=== PATIENT | male | born 1955 | race Two or more races ===

== ENCOUNTER 2020-06-20 14:32 | Inpatient (IN) | payer MEDICARE ==
[~2020-06-20] VITALS: Ht 180.3 cm; Wt 93.0 kg
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
[2020-06-20] MEDS ORDERED: LORAZEPAM 0.5 MG TABLET PO PRN ×2 (15:00→21:00)
[2020-06-20] MEDS ORDERED: MAGNESIUM HYDROXIDE 30 ML UDC PO PRN (15:00)
[2020-06-20] MEDS ORDERED: MAG HYDROX/AL HYDROX/SIMETH 30 ML UDC PO PRN (15:00)
[2020-06-20] MEDS ORDERED: ACETAMINOPHEN 325 MG TABLET PO PRN (15:00)
[2020-06-20] MEDS ORDERED: DIVA500T4 PO ×2 (15:09)
[2020-06-20] MEDS ORDERED: HALO100A2 IM (15:09)
[2020-06-20] MEDS ORDERED: TRAZ-182 PO (15:09)
--- NOTE | 2020-06-20 15:42 | NUR ---
RN-CO: DR MARTINEZ SEEN AND EXAMINED THE PATIENT WITH ORDERS NOTED AND CARRIED OUT.
[2020-06-20 15:50] VITALS: BP 127/72
[2020-06-20] MEDS: LORAZEPAM 0.5 MG TABLET PO PRN (16:27)
--- NOTE | 2020-06-20 16:28 | NUR ---
RN NOTE- PT VERBALLY ESCALATING. OFFERED ATIVAN 1 MG REFUSED STATED HED CALM DOWN. PT CALMED. THIRTY MINUTES LATER PT THREW WATER PITCHER AT VICE PRESIDENT OF FINANCE STAFF. ATIVAN 1 MG GIVEN REDIRECTED AND BOUNDARIES ESTABLISHED
[2020-06-20] MEDS ORDERED: BLOOD SUGAR DIAGNOSTIC 1 EACH STRIP IN ONE (16:30)
[2020-06-20] MEDS: QUETIAPINE FUMARATE 100 MG TABLET PO SCH ×2 (16:58→21:28)
[2020-06-20 19:52] VITALS: BP 111/60
[2020-06-20] MEDS: DIVALPROEX SODIUM 500 MG TABLET.DR PO SCH (21:27)
[2020-06-20] MEDS: TRAZODONE 50 MG TABLET PO SCH (21:28)
[2020-06-21] MEDS: TEMAZEPAM 7.5 MG CAPSULE PO PRN (00:36)
--- NOTE | 2020-06-21 00:42 | NUR ---
Pt c/o insomnia. Least restrictive measures ineffective. Restoril 7.5 mg po prn given as ordered. Will continue to monitor.
--- NOTE | 2020-06-21 02:06 | NUR ---
Post 1 hr Restoril effective. Pt asleep in bed easy to arouse. Will continue to monitor.
[2020-06-21] MEDS: LORAZEPAM 0.5 MG TABLET PO PRN ×2 (02:21→19:45)
--- NOTE | 2020-06-21 02:35 | NUR ---
Pt woke up and c/o anxiety. Least restrictive measures ineffective. Ativan 1 mg po prn given as ordered. Also c/o pain 3/10 to L hip. Tylenol 650 mg po prn given as ordered. Will continue to monitor.
--- NOTE | 2020-06-21 03:35 | NUR ---
Post 1 hr Ativan and tylenol effective. Pt is asleep in bed easy to arouse. Will continue to monitor.
[2020-06-21 06:41] LABS: ALBUMIN 3.1 g/dL (3.4-5.0); BILIRUBIN,TOTAL 0.4 mg/dL (0.2-1.0); CALCIUM, SERUM 8.7 mg/dL (8.5-10.1); CREATININE 0.9 mg/dL (0.6-1.3); POTASSIUM 4.4 mmol/L (3.5-5.1); TOTAL PROTEIN, SERUM 6.8 g/dL (6.4-8.2)
[2020-06-21] MEDS ORDERED: MEMA5TAB42 PO (07:54)
[2020-06-21] MEDS ORDERED: LISI-607 PO (07:54)
[2020-06-21] MEDS ORDERED: CYCL10TA9 PO (07:54)
[2020-06-21 08:00] VITALS: BP 111/71
[2020-06-21] MEDS: DIVALPROEX SODIUM 500 MG TABLET.DR PO SCH ×2 (08:24→21:10)
[2020-06-21] MEDS: QUETIAPINE FUMARATE 100 MG TABLET PO SCH ×3 (08:24→21:41)
--- NOTE | 2020-06-21 09:00 | NUR ---
RN NOTE- PT CALMER THIS MORNING HYPERVERBAL AT TIMES THOUGH LESS THAN ADMISSION TIME PO INTAKE GOOD MED COMPLIANT NO BEHAVIORAL ISSUES DENIES SI HI VH
--- NOTE | 2020-06-21 15:10 | NUR ---
Group Note: SW invited patient to participate in group therapy to discuss the topic of Problem Solving. Patient presents with euthymic mood and congruent affect. Patient shared that he lives with his with whom he no longer gets along" with. Patient was upset about his home situation and expressed that he wants to get a "divorce from his ". Patient also shared about having triplet sisters. Patient shared about his passion for cooking, but hates to clean up after. cafe worker provided active listening and acknowledged patient's feelings and concerns.
[2020-06-21 16:00] VITALS: BP 110/57
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
--- NOTE | 2020-06-21 19:46 | NUR ---
GPS RN NOTE: ANXIETY/AGITATION PATIENT IS AGITATED, YELLING, SCREAMING, ANXIOUS, PARANOID, NAKED , DOES NOT WANT WEAR GOWN ,RESTLESS, HYPERVERBAL AT THIS TIME, CURSING STAFF. NOT FOLLOWING ANY REDIRECTIONS ,PRN ATIVAN 1 MG , PO GIVEN, WILL CONTINUE TO MONITOR .
[2020-06-21 19:54] VITALS: BP 131/79
[2020-06-21] MEDS: TRAZODONE 50 MG TABLET PO SCH (21:41)
[2020-06-22] MEDS: TEMAZEPAM 7.5 MG CAPSULE PO PRN (02:08)
--- NOTE | 2020-06-22 02:18 | NUR ---
GPS RN NOTE: INSOMNIA PT. C/O UNABLE TO SLEEP. ADMINISTERED RESTORIL 7.5 MG PO PRN ORDERED. WILL CONTINUE TO MONITOR FOR SAFETY AND BEHAVIOR.
[2020-06-22 08:00] VITALS: BP 134/74
[2020-06-22] MEDS: QUETIAPINE FUMARATE 100 MG TABLET PO SCH ×2 (08:07→16:17)
[2020-06-22] MEDS: DIVALPROEX SODIUM 500 MG TABLET.DR PO SCH ×2 (08:07→20:35)
[2020-06-22] MEDS: LORAZEPAM 0.5 MG TABLET PO PRN ×2 (08:07→21:07)
--- NOTE | 2020-06-22 08:07 | NUR ---
RN NOTE- PT WALKING INTO SUN NAKED SHOWING GENITALS AGITATED . ATIVAN 1 MG GIVEN
[2020-06-22] MEDS: LISINOPRIL (5MG) 5 MG TABLET PO SCH (08:09)
--- NOTE | 2020-06-22 09:00 | NUR ---
RN NOTE- PT LESS INTRUSIVE, DECREASED OFFENSIVE BEHAVIORS, CONFUSED CONTINUES USING CALL BUTTON THEN ASKS TO 'LEARN HOW TO PLAY [employer]' WHEN ASKED WHAT HIS NEEDS ARE. DIRECTABLE MEWD COMPLIANT PO INTAKE FAIR SLEEPING POORLY
--- NOTE | 2020-06-22 11:15 | NUR ---
Point of Contact: OSVALDO called the contact on the [facility] ([phone]), but the phone went directly to voicemail and the mailbox was not set up.
--- NOTE | 2020-06-22 11:17 | NUR ---
Assisted Living Contact: OSVALDO called Eren ([phone]), Photoengraving Etcher Apprentice, but the phone kept ringing and then the phone line ended. There was no opportunity to leave a voicemail. OSVALDO will make another attempt at a later time.
--- NOTE | 2020-06-22 12:00 | NUR ---
RN NOTE- PT YELLING, INAPPROPRIATE MAKING RACIST REMARKS THROWING FOOD IN DAY ROOM WHEN REDIRECTED WALKING INTO SUN SHOWING GENITALS AT PEOPLE. DR MARTINEZ
--- NOTE | 2020-06-22 12:29 | NUR ---
Initial Discharge Plan: Pt currently resides at [facility] located at [address] [place] [id number]; ([phone]). Per pt, he would like to return to his home. SW will work with the pt and the MD regarding appropriate discharge planning. SW will form a safe and proper discharge.
--- NOTE | 2020-06-22 12:45 | NUR ---
RN NOTE- PT CAME INTO SUN SHOWING GENITALS AND BUTTOCKS ALSO TOUGH TO REDIRECT YELLING RACIAL SLURS. DR MARTINEZ INCREASED SEROQUEL. AUDIT MANAGER SPOKE TO
--- NOTE | 2020-06-22 15:46 | NUR ---
Group Note: SW encouraged pt to attend group therapy on 06/22/20 on the topic of discharge planning. Pt appeared to be too confused and disorganized to participate.
[2020-06-22 16:00] VITALS: BP 129/58
[2020-06-22 19:57] VITALS: BP 108/65
--- NOTE | 2020-06-22 21:07 | NUR ---
GPS RN NOTES: ANXIOUS PT THROWING BOOK ACROSS THE ROOM PT ANXIOUS. PT EASILY AGITATED AND ANGRY. ADMINISTERED ATIVAN 1MG PO PRN ORDERED. PT AGREED AND TOLERATED MEDICATION WELL. CONTINUE TO MONITOR.
[2020-06-22 21:37] VITALS: BP 115/67
[2020-06-22] MEDS ORDERED: QUETIAPINE FUMARATE 100 MG TABLET PO SCH (22:00)
[2020-06-22] MEDS: TRAZODONE 50 MG TABLET PO SCH (22:05)
[2020-06-23] MEDS: TEMAZEPAM 7.5 MG CAPSULE PO PRN ×2 (01:47→23:52)
--- NOTE | 2020-06-23 01:52 | NUR ---
GPS RN NOTES: INSOMNIA UPON DOING ROUNDS PT IN BED AWAKE READING A MAGAZINE. ASKED PT TO EXPRESS THOUGHTS AND FEELINGS. PT STATED HE CANT SLEEP. AND REQUESTED SLEEPING MEDICATION. CHECKED VITALS WNL. NO SOB. NO RESP DISTRESS. BREATHING EVEN AND UNLABORED. OFFERED RESTORIL PO PRN ORDERED. PT AGREED AND TOLERATED MEDICATION WELL. CONTINUE TO MONITOR.
[2020-06-23 08:00] VITALS: BP 130/71
[2020-06-23] MEDS: LORAZEPAM 0.5 MG TABLET PO PRN (08:59)
[2020-06-23] MEDS: QUETIAPINE FUMARATE 100 MG TABLET PO SCH ×3 (09:00→21:29)
[2020-06-23] MEDS: LISINOPRIL (5MG) 5 MG TABLET PO SCH (09:00)
[2020-06-23] MEDS: DIVALPROEX SODIUM 500 MG TABLET.DR PO SCH ×2 (09:00→21:29)
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
--- NOTE | 2020-06-23 10:51 | NUR ---
Assisted Living Contact: SW called Eren ([phone]), Air Brush Decorator, but the phone kept ringing and then the phone line ended. There was no opportunity to leave a voicemail.
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
--- NOTE | 2020-06-23 11:18 | NUR ---
Group Note: SW encouraged pt to participate in group on the topic of dealing with anxiety. Patient called this policy writer typist "Yara" and stated that this policy writer typist looks like his sister. Patient rambled about unrelated things, however he denies feeling anxiety. Pt presents confused and disorganized. SW provided active listening and supportive counseling.
[2020-06-23] MEDS ORDERED: LIDOCAINE 1%-EPI 1:100,000 50 ML VIAL IJ ONE (11:30)
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
--- NOTE | 2020-06-23 12:42 | NUR ---
RN NOTE :JUSTUS ALVAREZ INSERTED 6 MEAGHAN LEFT SIDE OF HEAD ,NO BLEEDING AT THIS TIME PLACE DRESSING ,CT HEAD ORDERED BY JUSTUS .WILL CONTINUE TO MONITOR .
[2020-06-23] MEDS ORDERED: LORAZEPAM 0.5 MG TABLET PO PRN (15:30)
[2020-06-23 16:00] VITALS: BP 100/68
--- NOTE | 2020-06-23 16:57 | NUR ---
RN NOTE:Patient alert verbally responsive flat affect ,ambulatory and self care no c/o pain ,isolative and withdrawn ,confused ,require constant redirection ,medicated with ativan prn for anxiety ,patient not agitated but confused and unpredictable notified with new orders ,all orders carried out ,doesn't know where he is .continue to monitor for
--- NOTE | 2020-06-23 17:00 | NUR ---
RN NOTE :CALLED TO INCREASE SEROQUEL AND ATIVAN 1MG TO Q4 HRS PRN ALL ORDERS CARRIED OUT.
[2020-06-23 19:29] VITALS: BP 99/60
[2020-06-23] MEDS: TRAZODONE 50 MG TABLET PO SCH (21:29)
--- NOTE | 2020-06-23 23:52 | NUR ---
GPS RN NOTE: INSOMNIA PT. C/O UNABLE TO SLEEP. ADMINISTERED RESTORIL 7.5 MG PO PRN ORDERED. WILL CONTINUE TO MONITOR FOR SAFETY AND BEHAVIOR
[2020-06-24] MEDS ORDERED: OLANZAPINE 10 MG VIAL IM STA (03:21)
[2020-06-24] MEDS ORDERED: LORAZEPAM INJ 2 MG/ML VIAL IM STA (03:21)
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
[2020-06-24] MEDS ORDERED: LORAZEPAM 1 MG TABLET PO PRN (04:00)
[2020-06-24] MEDS ORDERED: TEMAZEPAM 7.5 MG CAPSULE PO PRN (04:00)
[2020-06-24] MEDS ORDERED: ACETAMINOPHEN 325 MG TABLET PO PRN (04:00)
[2020-06-24] MEDS ORDERED: BLOOD SUGAR DIAGNOSTIC 1 EACH STRIP IN ONE (04:00)
[2020-06-24] MEDS ORDERED: MAG HYDROX/AL HYDROX/SIMETH 30 ML UDC PO PRN (04:00)
[2020-06-24] MEDS ORDERED: MAGNESIUM HYDROXIDE 30 ML UDC PO PRN (04:00)
[2020-06-24 08:00] VITALS: BP 100/63
[2020-06-24] MEDS ORDERED: ENSURE ENLIVE CHOC 237 ML CAN PO SCH (08:00)
[2020-06-24] MEDS: LORAZEPAM 1 MG TABLET PO PRN ×2 (08:42→20:21)
[2020-06-24] MEDS: DIVALPROEX SODIUM 500 MG TABLET.DR PO SCH ×2 (08:42→20:59)
[2020-06-24] MEDS: QUETIAPINE FUMARATE 100 MG TABLET PO SCH (08:42)
--- NOTE | 2020-06-24 08:42 | NUR ---
RN NOTES ADMINISTERED ATIVAN 1 MG PO PRN FOR ANXIETY, PARANOIA, V/S TAKEN BP 100/63, P88. CONTINUED MONITORING.
[2020-06-24] MEDS: LISINOPRIL (5MG) 5 MG TABLET PO SCH (08:43)
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
[2020-06-24] MEDS: BENZTROPINE MESYLATE (1 MG) 1 MG TABLET PO SCH ×2 (10:38→17:08)
[2020-06-24] MEDS: GABAPENTIN 100 MG CAPSULE PO SCH ×3 (10:38→17:08)
[2020-06-24] MEDS: HALOPERIDOL 5 MG TABLET PO SCH ×2 (10:38→17:08)
[2020-06-24 20:09] VITALS: BP 105/59
--- NOTE | 2020-06-24 20:47 | NUR ---
GPS RN NOTES: PT RESTLESS, ANXIOUS, PACING, REQUESTED FOR ATIVAN. ATIVAN 1MG 1 TAP GIVEN PO PRN ORDERED AT 2020. WILL CONTINUE TO MONITOR FOR MOOD AND BEHAVIOR.
[2020-06-24] MEDS: TRAZODONE 50 MG TABLET PO SCH (21:43)
[2020-06-25] MEDS: TEMAZEPAM 7.5 MG CAPSULE PO PRN (00:57)
--- NOTE | 2020-06-25 01:32 | NUR ---
GPS RN NOTES: PATIENT RESTLESS, PACING HALLWAY. AT 0054 PATIENT COMPLAINED OF INSOMNIA. RESTORIL 7.5MG 1 CAP GIVEN PO PRN AT 0057. PT CURRENTLY SLEEPING, RESPIRATION EVEN AND UNLABORED WITH EQUAL RISE AND FALL OF THE CHEST, ON ROOM AIR. WILL CONTINUE TO MONITOR.
[2020-06-25] MEDS: HALOPERIDOL 5 MG TABLET PO SCH ×2 (07:47→16:34)
[2020-06-25] MEDS: LISINOPRIL (5MG) 5 MG TABLET PO SCH (07:48)
[2020-06-25] MEDS: GABAPENTIN 100 MG CAPSULE PO SCH ×3 (07:48→16:34)
[2020-06-25] MEDS: DIVALPROEX SODIUM 500 MG TABLET.DR PO SCH ×2 (07:48→21:21)
[2020-06-25] MEDS: BENZTROPINE MESYLATE (1 MG) 1 MG TABLET PO SCH ×2 (07:48→16:34)
--- NOTE | 2020-06-25 08:28 | NUR ---
SNF Referral: OSVALDO faxed a referral to [facility] with attn to Admissions to the fax number: [phone].
[2020-06-25 08:30] VITALS: BP 133/69
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
[2020-06-25] MEDS ORDERED: OLANZAPINE 10 MG VIAL IM ONE (12:30)
[2020-06-25] MEDS ORDERED: LORAZEPAM INJ 2 MG/ML VIAL IM ONE (12:30)
[2020-06-25 16:00] VITALS: BP 125/73
--- NOTE | 2020-06-25 16:39 | NUR ---
Dr. Lebron called and spoke pt. through face time and ordered to increase Depakote to 500 mg TID.
[2020-06-25 19:40] VITALS: BP 124/46
[2020-06-25] MEDS ORDERED: DIVALPROEX SODIUM 500 MG TABLET.DR PO SCH ×2 (20:00→21:00)
[2020-06-25] MEDS: TRAZODONE 50 MG TABLET PO SCH (21:21)
[2020-06-26 08:00] VITALS: BP 118/65
[2020-06-26] MEDS: GABAPENTIN 100 MG CAPSULE PO SCH ×3 (08:49→17:11)
[2020-06-26] MEDS: HALOPERIDOL 5 MG TABLET PO SCH ×3 (08:49→17:11)
[2020-06-26] MEDS: BENZTROPINE MESYLATE (1 MG) 1 MG TABLET PO SCH ×2 (08:49→17:11)
[2020-06-26] MEDS: LORAZEPAM 1 MG TABLET PO PRN (08:49)
[2020-06-26] MEDS: DIVALPROEX SODIUM 500 MG TABLET.DR PO SCH ×3 (08:49→20:17)
[2020-06-26] MEDS: LISINOPRIL (5MG) 5 MG TABLET PO SCH (08:49)
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
[2020-06-26] MEDS ORDERED: OLANZAPINE 10 MG VIAL IM ONE (10:00)
[2020-06-26] MEDS ORDERED: LORAZEPAM INJ 2 MG/ML VIAL IM ONE (10:00)
[2020-06-26] MEDS ORDERED: TEMAZEPAM 7.5 MG CAPSULE PO PRN (11:00)
[2020-06-26 16:00] VITALS: BP 153/69
[2020-06-26] MEDS ORDERED: DIVALPROEX SODIUM 500 MG TABLET.DR PO SCH (17:00)
[2020-06-26] MEDS: GABAPENTIN 300 MG CAPSULE PO SCH (20:17)
[2020-06-26 20:23] VITALS: BP 90/58
[2020-06-27] MEDS: LORAZEPAM 1 MG TABLET PO PRN (07:20)
--- NOTE | 2020-06-27 07:21 | NUR ---
RN NOTE- PT C/O RESTLESSNESS ATIVAN 1 MG GIVEN
[2020-06-27 08:00] VITALS: BP 119/69
[2020-06-27] MEDS: LISINOPRIL (5MG) 5 MG TABLET PO SCH (08:38)
[2020-06-27] MEDS: GABAPENTIN 100 MG CAPSULE PO SCH ×3 (08:38→16:45)
[2020-06-27] MEDS: DIVALPROEX SODIUM 500 MG TABLET.DR PO SCH ×3 (08:38→21:15)
[2020-06-27] MEDS: HALOPERIDOL 5 MG TABLET PO SCH ×3 (08:38→16:45)
[2020-06-27] MEDS: BENZTROPINE MESYLATE (1 MG) 1 MG TABLET PO SCH ×2 (08:49→16:45)
--- NOTE | 2020-06-27 09:00 | NUR ---
RN NOTE- ANXIOUS AT START OF MORNING, ATIVAN AND RX DECREASED SX PT DIRECTABLE CALM THIS AM PO INTAKE FAIR CIRCUMSTANTIALITY EVIDENT, HYPERGRAPHIA DENIES AKIL IGLESIA [facility] CONTRACTS FOR SAFETY REDIRECTED PRN
[2020-06-27 15:51] VITALS: BP 102/61
[2020-06-27 20:00] VITALS: BP 110/66
[2020-06-27] MEDS: GABAPENTIN 300 MG CAPSULE PO SCH (21:15)
--- NOTE | 2020-06-27 23:00 | NUR ---
GPS RN NOTE: INSOMNIA PT COMPLAINED OF HAVING DIFFICULTY SLEEPING, ASKED IF HE CAN TAKE SOMETHING FOR SLEEP, ADMINISTERED PRN RESTORIL @ 2252, WILL REASSESS AND CONTINUE TO MONITOR Q15MIN FOR SAFETY AND BEHAVIOR.
[2020-06-28] MEDS: LORAZEPAM 1 MG TABLET PO PRN ×3 (03:10→22:06)
--- NOTE | 2020-06-28 03:13 | NUR ---
GPS RN NOTE: ANXIETY PT STATED "IM FEELING ANXIOUS, I NEED SOMETHING, CAN I HAVE ATIVAN" ADMINSTERED 1MG ATIVAN PRN @ 0310, WILL REASSESS AND CONTINUE TO MONITOR Q15 MIN FOR SAFETY AND BEHAVIOR.
[2020-06-28 08:00] VITALS: BP 120/69
[2020-06-28] MEDS: HALOPERIDOL 5 MG TABLET PO SCH ×3 (08:33→16:41)
[2020-06-28] MEDS: BENZTROPINE MESYLATE (1 MG) 1 MG TABLET PO SCH ×2 (08:33→16:41)
[2020-06-28] MEDS: DIVALPROEX SODIUM 500 MG TABLET.DR PO SCH ×3 (08:33→20:02)
[2020-06-28] MEDS: GABAPENTIN 100 MG CAPSULE PO SCH ×3 (08:33→16:41)
[2020-06-28] MEDS: LISINOPRIL (5MG) 5 MG TABLET PO SCH (08:34)
--- NOTE | 2020-06-28 09:00 | NUR ---
RN NOTE- PT ALERT ORIENTED PERSON PLACE CONFUSED IRRITABLE DENIES ALL MED COMPLIANT INTRUSIVE
--- NOTE | 2020-06-28 13:28 | NUR ---
RN NOTE: ANXIETY/AGGRESSIVE BEHAVIOR PT EXHIBITING INCREASED ANXIETY AND AGGRESSION. POSTURING TOWARD OTHER PATIENTS. UNABLE TO BE REDIRECTED OR INDEPENDENTLY CALM SELF. MEDICATED WITH ATIVAN 1MG PO PRN.
[2020-06-28 16:00] VITALS: BP 141/80
[2020-06-28 19:34] VITALS: BP 128/65
[2020-06-28] MEDS: GABAPENTIN 300 MG CAPSULE PO SCH (20:02)
[2020-06-28] MEDS ORDERED: GABAPENTIN 100 MG CAPSULE PO SCH (21:00)
--- NOTE | 2020-06-28 22:13 | NUR ---
GPS-RN NOTE: ANXIETY PATIENT IS ANXIOUS, RESTLESS AND EASILY GETS AGITATED. ADMINISTERED ATIVAN 1MG PO ORDERED. WILL CONTINUE TO MONITOR FOR SAFETY AND BEHAVIOR.
[2020-06-29 08:00] VITALS: BP 113/60
[2020-06-29] MEDS: HALOPERIDOL 5 MG TABLET PO SCH ×3 (08:01→17:04)
[2020-06-29] MEDS: DIVALPROEX SODIUM 500 MG TABLET.DR PO SCH ×3 (08:01→21:39)
[2020-06-29] MEDS: BENZTROPINE MESYLATE (1 MG) 1 MG TABLET PO SCH ×2 (08:02→17:04)
[2020-06-29] MEDS: LISINOPRIL (5MG) 5 MG TABLET PO SCH (08:02)
[2020-06-29] MEDS: LORAZEPAM 1 MG TABLET PO PRN (08:10)
[2020-06-29] MEDS: GABAPENTIN 100 MG CAPSULE PO SCH ×4 (08:10→21:39)
--- NOTE | 2020-06-29 08:13 | NUR ---
GPS-RN NOTE: ANXIETY PATIENT IS ANXIOUS, EASILY GETS AGITATED. ADMINISTERED ATIVAN 1MG PO ORDERED. WILL CONTINUE TO MONITOR FOR SAFETY AND BEHAVIOR.
[2020-06-29 16:00] VITALS: BP 111/71
[2020-06-29 19:59] VITALS: BP 90/59
[2020-06-30 08:00] VITALS: BP 148/72
[2020-06-30 09:03] VITALS: BP 148/72
[2020-06-30] MEDS: HALOPERIDOL 5 MG TABLET PO SCH ×2 (09:03→12:27)
[2020-06-30] MEDS: LISINOPRIL (5MG) 5 MG TABLET PO SCH (09:03)
[2020-06-30] MEDS: BENZTROPINE MESYLATE (1 MG) 1 MG TABLET PO SCH (09:04)
[2020-06-30] MEDS: GABAPENTIN 100 MG CAPSULE PO SCH ×2 (09:04→12:27)
[2020-06-30] MEDS: DIVALPROEX SODIUM 500 MG TABLET.DR PO SCH ×2 (09:04→12:27)
--- NOTE | 2020-06-30 14:06 | NUR ---
Discharge Note: Pt was discharged to [facility] located at [address] [place] [address]; . Pt was transported via [facility] at 11AM. Upon discharge, the pt appeared to be in a euthymic mood and presented with a calm affect. Pt denied both suicidal and homicidal ideation as well as auditory and visual hallucinations. Pt appeared to be disheveled and ungroomed. Pt appeared to be ambulatory with an unsteady gait. Pt will be under the care of his psychiatrist, Dr. Fernandez, located at [address] [address], [place] [address]; and implementation project coordinator, Dr. Gleason, located at [address] [place] [address]; . The multidisciplinary exit care form was done, printed, signed, and given to the patient.
--- NOTE | 2020-06-30 15:10 | NUR ---
GPS PROFESSIONAL BASS FISHER: PATIENT DISCHARGED TODAY AT 1510 TO [facility] LOCATED AT [address] [place] [address] . PATIENT LEFT THE UNIT VIA AMBULANCE PATIENT IS IN STABLE CONDITION. VSS. NO ACUTE DISTRESS NOTED. NO COMPLAINTS. COMPLIANT WITH MEDICATION MANAGEMENT. COOPERATIVE WITH PLAN OF CARE. PSYCHIATRIC TREATMENT PLANS MET. MEDICAL TREATMENT PLANS DEFERRED FOR CONTINUAL MONITORING. DENIES SI/HI/VAH AT THE TIME OF DISCHARGE.NO BEHAVIOR PROBLEMS AT THIS TIME PT COOPERATIVE AMBULATORY, COMPLIANT WITH MEDICATIONS AND TX . SKIN CHECK DONE PICTURES PLACED IN THE CHART EDUCATED PATIENT ABOUT AFTERCARE WITH COPY PROVIDED. RETURNED PERSONAL BELONGINGS TO PATIENT. MEDICATIONS RECONCILED WITH ALONG WITH PSYCHIATRIC DISCHARGE ORDERS. DISCHARGE PAPERWORK SIGNED.
== END 2020-06-30 15:10 | DRG 885 ==
LOC: GPS 14:32
PROVIDERS: ADMIT Psychiatry & Neurology Psychiatry; ATTEND Nurse Practitioner Acute Care
DX: F31.9 Bipolar disorder, unspecified (principal); N17.0 Acute kidney failure with tubular necrosis; E44.1 Mild protein-calorie malnutrition; F41.9 Anxiety disorder, unspecified; I10 Essential (primary) hypertension; M19.90 Unspecified osteoarthritis, unspecified site; F12.10 Cannabis abuse, uncomplicated; S01.81XA Laceration without foreign body of other part of head, initial encounter; W19.XXXA Unspecified fall, initial encounter; Y93.9 Activity, unspecified; Y92.230 Patient room in hospital as the place of occurrence of the external cause; F29 Unspecified psychosis not due to a substance or known physiological condition; E88.09 Other disorders of plasma-protein metabolism, not elsewhere classified; Z68.28 Body mass index [BMI] 28.0-28.9, adult
CPT/HCPCS: 36415; 70450-TC; 80053-TC; 80061-TC; 80164-TC; 82962-TC; 87081-TC; J2060; J3490